=== PATIENT | male | born 1935 | race Caucasian/White ===

== ENCOUNTER 2017-07-24 18:27 | Observation (INO) ==
[2017-07-24] MEDS ORDERED: *HR* FentaNYL (PF) 100 MCG/2 ML VIAL IVP ONE (18:46)
[2017-07-24] MEDS ORDERED: 0.9 % Sodium Chloride 1,000 ML IVC ONE (18:46)
--- NOTE | 2017-07-24 18:50 | Emergency Department Note ---
Disposition Clinical Impression: Fracture of superior pubic ramus Qualifiers: Encounter type: initial encounter Fracture type: closed Laterality: left Qualified Code(s): S32.512A - Fracture of superior rim of left pubis, initial encounter for closed fracture Fracture of left inferior pubic ramus Qualifiers: Encounter type: initial encounter Fracture type: closed Qualified Code(s): S32.592A - Other specified fracture of left pubis, initial encounter for closed fracture Contusion, hip Qualifiers: Encounter type: initial encounter Laterality: right Qualified Code(s): S70.01XA - Contusion of right hip, initial encounter UTI (urinary tract infection) Qualifiers: Urinary tract infection type: site unspecified Hematuria presence: without hematuria Qualified Code(s): N39.0 - Urinary tract infection, site not specified Disposition: Admitted As Inpatient Condition: Fair Forms: ED Satisfaction Letter Time of Disposition: 20:51 Fall HPI - General Chief Complaint: ED Fall Stated Complaint: fall Time Seen by Provider: 07/24/17 18:28 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 Patient states his foot slipped from underneath him and he landed on his back and hips. Patient complaining of bilateral hip pain, occiput pain and cervical pain. Patient is on Coumadin. Onset (ago): hour(s) (1) Fall From: standing Fall Witnessed: no Place Fall Occurred: detention/SNF Loss of Consciousness: none Prolonged Down Time?: unclear Symptoms Prior to Fall: none Context: tripped/slipped Location of injury: head, neck, hip, pelvis - Related Data Home Medications Medication Instructions Recorded Confirmed Acetaminophen [Tylenol Arthritis] 650 mg PO TID 04/08/16 04/08/16 Alendronate Sodium [Fosamax] 70 mg PO QWEEK 04/08/16 04/08/16 Atorvastatin [Lipitor] 40 mg PO HS 04/08/16 04/08/16 Cholecalciferol (D-3) [Vitamin D] 2,000 unit PO DAILY 04/08/16 04/08/16 Clotrimazole 1% CRM [Lotrimin 1%] 1 appl TP BID 04/08/16 04/08/16 Digoxin [Lanoxin] 0.125 mg PO DAILY 04/08/16 04/08/16 Docusate [Colace] 200 mg PO DAILY 04/08/16 04/08/16 Furosemide [Lasix] 40 mg PO QPM 04/08/16 04/08/16 Furosemide [Lasix] 60 mg PO QAM 04/08/16 04/08/16 Insulin NPH, HUMAN [HumuLIN N] 35 unit SQ QPM 04/08/16 04/08/16 Insulin NPH, HUMAN [HumuLIN N] 55 unit SQ QAM 04/08/16 04/08/16 Levothyroxine Sodium [Levoxyl] 175 mcg PO DAILY 04/08/16 04/08/16 Losartan Potassium [Cozaar] 50 mg PO BID 04/08/16 04/08/16 NIFEdipine [Adalat cc] 60 mg PO DAILY 04/08/16 04/08/16 Omeprazole [PriLOSEC] 20 mg PO DAILY 04/08/16 04/08/16 Tamsulosin HCl [Flomax] 0.4 mg PO DAILY 04/08/16 04/08/16 Warfarin [Coumadin] 2.5 mg PO AD 04/08/16 04/08/16 Warfarin [Coumadin] 5 mg PO AD 04/08/16 04/08/16 Previous Rx's Medication Instructions Recorded HYDROcodone/Acet 5/325 mg [[place] 1 tab PO Q6H PRN #20 tablet 04/09/16 5-325 mg] Lidocaine Patch [Lidoderm 5% patch] 1 each TP DAILY #7 adh..patch 04/09/16 Allergies Allergy/AdvReac Type Severity Reaction Status Date / Time acetaminophen [From Percocet] Allergy See Verified 03/25/16 18:38 Comments baclofen Allergy See Verified 03/25/16 18:38 Comments cheese Allergy See Verified 03/25/16 18:38 Comments gabapentin Allergy See Verified 03/25/16 18:38 Comments Hydralazine Allergy See Verified 03/25/16 18:38 Comments milk Allergy See Verified 03/25/16 18:38 Comments Oxycodone [From Percocet] Allergy See Verified 03/25/16 18:38 Comments Salsalate Allergy See Verified 03/25/16 18:38 Comments Terazosin Allergy See Verified 03/25/16 18:38 Comments tramadol Allergy See Verified 03/25/16 18:38 Comments butter Allergy See Uncoded 03/25/16 18:38 Comments All systems ED: reviewed and negative except as stated. Review of Systems: As Per HPI Constitutional: Denies: fever, weakness Respiratory: Denies: cough Gastrointestinal: Denies: abdominal pain, nausea, vomiting, diarrhea Fall PMH - Past Medical History Medical history: Reports: atrial fibrillation, CHF, diabetes, osteoporosis, thyroid disease Psychiatric history: Reports: no psych history - Social History Smoking Status: Never smoker Alcohol use: Reports: none Drug use: Reports: none Physical Exam Vital Signs Temperature 97.8 F 07/24/17 18:27 Pulse Rate 76 07/24/17 18:27 Respiratory Rate 18 07/24/17 18:27 Blood Pressure 161/83 07/24/17 18:27 O2 Sat by Pulse Oximetry 98 07/24/17 18:27 Temperature 97.8 F 07/24/17 18:27 Pulse Rate 76 07/24/17 18:27 Respiratory Rate 18 07/24/17 18:27 Blood Pressure 161/83 07/24/17 18:27 O2 Sat by Pulse Oximetry 98 07/24/17 18:27 Oxygen Delivery Oxygen Delivery Room Air 82-year-old male who was is alert and oriented to himself but has fluidity of speech. Patient can tell you that the president is Jignesh is the president. Patient has no recollection of time or day. CONSTITUTIONAL: Alert and oriented X1 for himself, well-nourished, well appearing, in no apparent distress as long as he does not try to move. HEAD: Normocephalic; atraumatic. EYES: PERRL, no scleral icterus. NOSE: The nose is normal in appearance without rhinorrhea RESP: Normal chest excursion with respiration; breath sounds clear and equal bilaterally; no wheezes, rhonchi, or rales CARD: Regular rhythm, without murmurs, rub or gallop ABD: Non-distended; non-tender, soft,without rigidity, rebound or guarding Back: No step-offs no deviation upon palpation T and L-spine. Patient is too distracted by hip pain to localized pain in this fine when I palpate. SKIN: Normal for age and race; warm and dry; no apparent lesions Extremities: Tenderness to palpation right left hip, Pulses are 2 plus and equal times 4 extremities, no peripheral edema or calf muscle pain. NEUROLOGICAL: Cranial nerves III-XII are intact. Sensory and motor functions are intact. Strength is 5/5 for flexion and extension in upper extremities. Patient can wiggle his toes and he has equal sensation in both lower extremities but cannot move his lower extremities secondary to restriction from pain. Finger to nose testing is equal and normal bilaterally. - General Limitations: no limitations General appearance: alert, in no apparent distress Course Vital Signs Temperature 97.8 F 07/24/17 18:27 Pulse Rate 76 07/24/17 18:27 Respiratory Rate 18 07/24/17 18:27 Blood Pressure 161/83 07/24/17 18:27 O2 Sat by Pulse Oximetry 98 07/24/17 18:27 Temperature 97.8 F 07/24/17 18:27 Pulse Rate 76 07/24/17 18:27 Respiratory Rate 18 07/24/17 18:27 Blood Pressure 161/83 07/24/17 18:27 O2 Sat by Pulse Oximetry 98 07/24/17 18:27 Oxygen Delivery Oxygen Delivery Room Air Fall - [facility] Narrative Medical decision making narrative: Ground-level mechanical fall without loss of consciousness concerning for possible intracranial hemorrhage secondary to patient being on Coumadin along with cervical fracture with tenderness to midline C-spine as well as possible hip fracture with tenderness to palpation of bilateral hips. Fall was unwitness[facility] as [facility]. Patient is alert and oriented to himself. Straight catheter was ordered to obtain patient's urine because patient unable to produce urine on his own because of restriction of motion secondary to pain. Imaging shows no cranial fracture or intracranial hemorrhage or hematoma. CT of C-spine shows no fracture. CT pelvis shows left inferior and superior pubic rami fractures with small amount of blood surrounding the fracture site. Patient is on Coumadin. INR is in therapeutic range at 2.0. Patient's pain is being controlled with fentanyl. Urinalysis shows UTI and patient has been started on IV antibiotics ceftriaxone. Patient has WBC of 16.5 2/2 a combination of patient's distress to acute intense pain from fall, and UTI. Dr. Omer of orthopedic surgery has been consulted Patient has been accepted for admission by Dr. Ray - Lab Data Lab results reviewed: Yes I reviewed the patient's lab results. Lab results narrative: Short CBC 07/24/17 Range/Units 19:00 WBC 16.5 H (4.3-11.1) K/mcL Hgb 15.8 (12.9-16.9) g/dL Hct 47.8 (37.5-50.1) % Plt Count 128 L (140-400) K/mcL Neutrophils # 13.0 H (1.6-8.9) K/mcL BMP 07/24/17 Range/Units 20:01 Sodium 137 (136-145) mEq/L Potassium 4.1 (3.5-5.1) mEq/L Chloride 105 (98-107) mEq/L Carbon Dioxide 26 (23-29) mEq/L BUN 26 H (8-23) mg/dL Creatinine 0.90 (0.70-1.30) mg/dL Glucose 136 H (70-105) mg/dL Calcium 9.7 (8.6-10.3) mg/dL Cardiac Enzymes 07/24/17 Range/Units 19:00 Troponin I 0.03 (< 0.04) ng/mL Urine 07/24/17 Range/Units 20:29 Urine Color Yellow (Yellow) Urine Clarity Cloudy A (Clear) Urine pH 6.0 (5.0-8.0) pH Units Ur Specific [place] 1.016 (1.010-1.025) Urine Protein Negative (Neg-Trace) mg/dL Urine Glucose (UA) Normal (Normal) mg/dL Result diagrams: 07/24/17 19:00 07/24/17 20:01 Lab Results 07/24/17 07/24/17 07/24/17 Range/Units 19:00 19:00 19:00 WBC 16.5 H (4.3-11.1) K/mcL RBC 5.01 (4.19-5.50) M/mcL Hgb 15.8 (12.9-16.9) g/dL Hct 47.8 (37.5-50.1) % MCV 95.4 (83.0-100.0) fL MCH 31.5 (28.0-33.3) pg MCHC 33.1 (31.6-35.5) g/dL RDW 12.3 (11.5-14.5) % Plt Count 128 L (140-400) K/mcL MPV 10.2 (9.4-12.4) fL Immature Gran % 1.1 (0-4) % Seg Neutrophils % 78.8 % Lymphocytes % 11.7 % Monocytes % 6.9 % Eosinophils % 1.1 % Basophils % 0.4 % Neutrophils # 13.0 H (1.6-8.9) K/mcL Lymphocytes # 1.9 (0.6-4.6) K/mcL Monocytes # 1.1 (0.0-1.3) K/mcL Eosinophils # 0.2 (0.0-0.6) K/mcL Basophils # 0.1 (0.0-0.2) K/mcL PT 21.8 H (9.4-12.1) Seconds INR 2.0 Sodium (136-145) mEq/L Potassium (3.5-5.1) mEq/L Chloride (98-107) mEq/L Carbon Dioxide (23-29) mEq/L BUN (8-23) mg/dL Creatinine (0.70-1.30) mg/dL Est GFR ( Amer) (> 60) Est GFR (Non-Af Amer) (> 60) BUN/Creatinine Ratio (6-26) Glucose (70-105) mg/dL Calculated Osmolality (280-300) Calcium (8.6-10.3) mg/dL Creatine Kinase (30-223) Units/L Troponin I 0.03 (< 0.04) ng/mL Specimen Rejected 07/24/17 07/24/17 Range/Units 19:00 20:01 WBC (4.3-11.1) K/mcL RBC (4.19-5.50) M/mcL Hgb (12.9-16.9) g/dL Hct (37.5-50.1) % MCV (83.0-100.0) fL MCH (28.0-33.3) pg MCHC (31.6-35.5) g/dL RDW (11.5-14.5) % Plt Count (140-400) K/mcL MPV (9.4-12.4) fL Immature Gran % (0-4) % Seg Neutrophils % % Lymphocytes % % Monocytes % % Eosinophils % % Basophils % % Neutrophils # (1.6-8.9) K/mcL Lymphocytes # (0.6-4.6) K/mcL Monocytes # (0.0-1.3) K/mcL Eosinophils # (0.0-0.6) K/mcL Basophils # (0.0-0.2) K/mcL PT (9.4-12.1) Seconds INR Sodium 137 (136-145) mEq/L Potassium 4.1 (3.5-5.1) mEq/L Chloride 105 (98-107) mEq/L Carbon Dioxide 26 (23-29) mEq/L BUN 26 H (8-23) mg/dL Creatinine 0.90 (0.70-1.30) mg/dL Est GFR ( Amer) > 60 (> 60) Est GFR (Non-Af Amer) > 60 (> 60) BUN/Creatinine Ratio 29 H (6-26) Glucose 136 H (70-105) mg/dL Calculated Osmolality 291 (280-300) Calcium 9.7 (8.6-10.3) mg/dL Creatine Kinase 25 L (30-223) Units/L Troponin I (< 0.04) ng/mL Specimen Rejected Hemolyzed - Radiology Data Radiology results reviewed: Yes I reviewed the patient's radiology results. Cervical Spine CT 07/24/17 18:37 IMPRESSION: 1. Advanced degenerative change of the cervical spine without CT evidence of acute trauma. 2. Severe atherosclerosis. 3. Bronchiolitis. D/ / Donovan Suggs / Donovan Suggs Interpreting Provider: Donovan Suggs Head CT 07/24/17 18:37 IMPRESSION: No acute intracranial abnormality. No change from prior study. D/ / 07/24/2017 20:23:48 Srinivasa Sprague MD / gabrielle Interpreting Provider: Srinivasa Sprague MD Pelvis CT 07/24/17 18:37 IMPRESSION: 1. Acute mildly comminuted fractures of the left superior and inferior pubic rami with adjacent stranding compatible with blood products. 2. Osteopenia. 3. Mild bilateral hip osteoarthritis. 4. Atherosclerotic disease. D/ / Ryan Gallagher MD / Ryan Gallagher MD Interpreting Provider: Ryan Gallagher MD Chest X-Ray 07/24/17 18:39 IMPRESSION: 1. Chronic appearing coarse interstitial densities predominate parahilar regions and lung bases, typical of sequela from smoking or other previous infectious/inflammatory process. Superimposed pneumonitis cannot be excluded. 2. Borderline to mild cardiomegaly. 3. Calcific atherosclerotic disease aorta. D/ / Mark Marinelli / Mark Marinelli Interpreting Provider: Mark Marinelli - EKG Data EKG attestation: Yes I reviewed and interpreted this EKG. EKG results narrative: EKG taken to July 2017 at 1826 shows A. fib at a rate of [address] elevations or depression any leads. QRS widening or QT prolongation previous EKG for comparison also shows A. fib but slow ventricular response at a rate of 57 bpm from an acute ST elevations or depressions. Both EKGs show the same waveform. Attestation Statement - Attestation Attestation: I examined this patient and my medical decision-making was reviewed with the Resident Physician. I agree with the documented findings, disposition and treatment plan as described except to the extent set forth below. Patient presents to the ED after a fall. Patient's foot slipped and landed on his bottom. Complaining of Pelvic pain. Denies any his head or loss of consciousness. Patient awake and alert on exam. Pain with any movement over his pelvis. Abdomen soft lungs clear. No cervical thoracic or lumbar spine tenderness. Plan. Patient with pubic rami fractures. He is on Coumadin. He has some mild bleeding around the fractures. Will admit for serial H&H.
[2017-07-24 19:17] LABS: Basophils # 0.1 K/mcL (0.0-0.2); Basophils % 0.4 %; Eosinophils # 0.2 K/mcL (0.0-0.6); Eosinophils % 1.1 %; Hematocrit 47.8 % (37.5-50.1); Hemoglobin 15.8 g/dL (12.9-16.9); Immature Granulocytes % 1.1 % (0-4); Lymphocytes # 1.9 K/mcL (0.6-4.6); Lymphocytes % 11.7 %; Mean Corpuscular HGB Conc 33.1 g/dL (31.6-35.5); Mean Corpuscular Hemoglobin 31.5 pg (28.0-33.3); Mean Corpuscular Volume 95.4 fL (83.0-100.0); Mean Platelet Volume 10.2 fL (9.4-12.4); Monocytes # 1.1 K/mcL (0.0-1.3); Monocytes % 6.9 %; Platelet Count 128 K/mcL (140-400); Red Blood Count 5.01 M/mcL (4.19-5.50); Red Cell Distribution Width 12.3 % (11.5-14.5); Segmented Neutrophils % 78.8 %
[2017-07-24 19:23] LABS: Prothrombin Time 21.8 Seconds (9.4-12.1)
[2017-07-24 20:31] LABS: BUN/Creatinine Ratio 29 (6-26); Blood Urea Nitrogen 26 mg/dL (8-23); Calcium 9.7 mg/dL (8.6-10.3); Carbon Dioxide 26 mEq/L (23-29); Chloride 105 mEq/L (98-107); Creatine Kinase 25 Units/L (30-223); Glucose 136 mg/dL (70-105); Osmolality,Calculated 291 (280-300); Potassium 4.1 mEq/L (3.5-5.1); Sodium 137 mEq/L (136-145); eGFR For African Americans > 60 (> 60); eGFR For Non-African Americans > 60 (> 60)
[2017-07-24 20:38] LABS: Bilirubin,Urine Negative (Negative); Blood,Urine Negative (Negative); Clarity,Urine Cloudy (Clear); Color,Urine Yellow (Yellow); Glucose,Urine (UA) Normal (Normal); Ketones,Urine Negative (Negative); Leukocyte Esterase,Urine Moderate (Negative); Nitrite,Urine Positive (Negative); Protein,Urine Negative (Neg-Trace); Specific Gravity,Urine 1.016 (1.010-1.025); Urobilinogen,Urine Normal (Normal)
[2017-07-24 20:40] LABS: Bacteria,Urine Many per hpf (None-Few); Hyaline Casts,Urine None Seen per lpf (None-Few); RBC,Urine 0-3 per hpf (0-3); Squamous Epithelial Cell,Urine Few per lpf (None-Few); WBC,Urine 30-50 per hpf (0-3)
[2017-07-24] MEDS ORDERED: cefTRIAXone 1,000 MG in Water for inj. (sterile) 20 ML 10 ML IVP ONE (20:42)
[2017-07-24] MEDS ORDERED: Naloxone 0.4 MG/ML INJ IVP PRN (22:49)
[2017-07-24] MEDS ORDERED: Ketorolac 15 MG/ML VIAL IVP PRN (22:54)
[2017-07-24] MEDS ORDERED: Dextrose Gel 15 GM/37.5 ML TUBE PO PRN ×2 (22:56)
[2017-07-24] MEDS ORDERED: D5% in Water 1,000 ML IVC PRN (22:56)
[2017-07-24] MEDS ORDERED: *HR* Dextrose 50 % in Water (Syg) 50 ML SYRINGE IVP PRN (22:56)
--- NOTE | 2017-07-25 00:05 | Internal Med History&Physical ---
Date of Encounter: 07/24/17 Time of Encounter: 21:00 Assessment and Plan (1) CHF (congestive heart failure) Current visit: Yes Status: Acute Appears euvolemic. Cont home med lasix. Qualifiers: Congestive heart failure type: unspecified Congestive heart failure chronicity: chronic Qualified Code(s): I50.9 - Heart failure, unspecified (2) DVT prophylaxis Current visit: Yes Status: Acute Pt is on coumadin. Coumadin is on hold because fall and fracture with suspected inner bleed. Place pt on EPCD. (3) Fracture of left inferior pubic ramus Current visit: Yes Status: Acute Cont pain management and closely monitor pt. Orthopedic consult called by ER. Less likely surgery. Diet placed. Qualifiers: Encounter type: initial encounter Fracture type: closed Qualified Code(s) : S32.592A - Other specified fracture of left pubis, initial encounter for closed fracture (4) UTI (urinary tract infection) Current visit: Yes Status: Acute Cont rocephin iv. F/U urine culture. Qualifiers: Urinary tract infection type: site unspecified Hematuria presence: without hematuria Qualified Code(s): N39.0 - Urinary tract infection, site not specified (5) Atrial fibrillation Current visit: No Status: Chronic HR is well controlled. On coumadin at [facility], will hold coumadin b/o recent fall and fracture. Place baby ASA at this point. Qualifiers: Atrial fibrillation type: chronic Qualified Code(s): I48.2 - Chronic atrial fibrillation (6) DM2 (diabetes mellitus, type 2) Current visit: No Status: Chronic Place pt in sliding scale. Qualifiers: Diabetes mellitus complication status: without complication Diabetes mellitus alf insulin use: with terminal system operator use Qualified Code(s): E11.9 - Type 2 diabetes mellitus without complications; Z79.4 - penitentiary (current) use of insulin (7) Hypertension Current visit: No Status: Chronic Cont home meds Qualifiers: Hypertension type: essential hypertension Qualified Code(s): I10 - Essential (primary) hypertension Internal Medicine - H&P: HPI Chief complaint: Fall Admitted From: Long-term Nursing Facility Plans for Post Hospital Care: [facility] History of present illness: Mr. Lopez is a 82 year old male with Hx of dementia, DM, A Fib on coumadin, CHF sent from [facility] to ER for fall. Pt has mechanical fall during try to get up from bed. Pt is demented and hx obtained from his daughter. Pt was sent to ER and had CT head, neck, and pelvis. Head and neck CT unremarkable. Pelvis CT shows Acute mildly comminuted fractures of the left superior and inferior pubic rami with adjacent stranding compatible with blood products. Orthopedics was called by ER. Pt was admitted for further management. Past Med Surg Social Fam HX - Past Medical History Medical history: atrial fibrillation, CHF, coronary artery disease, dementia, diabetes, GERD, osteoporosis, thyroid disease Psychiatric history: no psych history - Social History Smoking Status: Never smoker Alcohol use: none Drug use: none - Family History Mother History Unknown: Yes Internal Medicine - H&P: Meds Acetaminophen [Tylenol Arthritis] 650 mg PO TID 04/08/16 [History] Alendronate Sodium [Fosamax] 70 mg PO REES 04/08/16 [History] Atorvastatin [Lipitor] 40 mg PO HS 04/08/16 [History] Cholecalciferol (D-3) [Vitamin D] 2,000 unit PO DAILY 04/08/16 [History] Digoxin [Lanoxin] 0.125 mg PO DAILY 04/08/16 [History] Docusate [Colace] 200 mg PO DAILY 04/08/16 [History] Furosemide [Lasix] 40 mg PO QPM 04/08/16 [History] Furosemide [Lasix] 60 mg PO QAM 04/08/16 [History] Levothyroxine Sodium [Levoxyl] 175 mcg PO QAM 04/08/16 [History] Losartan Potassium [Cozaar] 50 mg PO BID 04/08/16 [History] NIFEdipine [Adalat cc] 60 mg PO DAILY 04/08/16 [History] Tamsulosin HCl [Flomax] 0.4 mg PO DAILY 04/08/16 [History] Ammonium Lactate [Swetha-Hydrolac] 1 appl TP BID PRN 07/24/17 [History] Calcium Carbonate/Vitamin D3 [Calcium 500-Vit D3 200 Tablet] 1 each PO TID 07/24 [History] Duloxetine HCl [Cymbalta] 60 mg PO DAILY 07/24/17 [History] Famotidine [Pepcid] 20 mg PO DAILY 07/24/17 [History] Glucagon,Human Recombinant [Glucagen] 1 mg SQ ONCE PRN 07/24/17 [History] HYDROcodone/Acet 5/325 mg [[place] 5-325 mg] 1 tab PO Q4H PRN 07/24/17 [History] Insulin DETEMIR [Levemir] 12 unit SQ QPM 07/24/17 [History] Insulin DETEMIR [Levemir] 16 unit SQ QAM 07/24/17 [History] Polyethylene Glycol 3350 [MiraLAX] 17 gm PO DAILY PRN 07/24/17 [History] Potassium Chloride [K-Tab ER] 20 meq PO BID 07/24/17 [History] Warfarin perPT [Coumadin perPT] 3.5 mg PO QPM 07/24/17 [History] Wheat Dextrin [Benefiber] 1 each PO QPM 07/24/17 [History] diazePAM [Valium] 2 mg PO BID 07/24/17 [History] 3 Allergy/AdvReac Type Severity Reaction Status Date / Time acetaminophen [From Percocet] Allergy See Verified 03/25/16 18:38 Comments baclofen Allergy See Verified 03/25/16 18:38 Comments cheese Allergy See Verified 03/25/16 18:38 Comments gabapentin Allergy See Verified 03/25/16 18:38 Comments Hydralazine Allergy See Verified 03/25/16 18:38 Comments milk Allergy See Verified 03/25/16 18:38 Comments Oxycodone [From Percocet] Allergy See Verified 03/25/16 18:38 Comments Salsalate Allergy See Verified 03/25/16 18:38 Comments Terazosin Allergy See Verified 03/25/16 18:38 Comments tramadol Allergy See Verified 03/25/16 18:38 Comments butter Allergy See Uncoded 03/25/16 18:38 Comments All Systems PM: A 10-system review of systems was performed and is negative for pertinent findings except as documented above in the HPI. - Constitutional Vitals: Temp Pulse Resp BP Pulse Ox 97.4 F L 84 17 142/83 94 07/24/17 23:54 07/24/17 23:54 07/24/17 23:54 07/24/17 23:54 07/24/17 23:54 General appearance: Present: A&O X 1, no acute distress, answers questions appropriately - Head Head exam: Present: atraumatic, normocephalic - Eye Eye exam: Present: PERRL, conjuntiva pink, sclera anicteric Pupils: Present: PERRL - Neck Neck exam general surgery: Present: supple, trachea midline. Absent: lymphadenopathy - Respiratory Respiratory exam: Present: CTAB. Absent: accessory muscle use, rales, rhonchi, wheezes - Cardiovascular Cardiovascular exam: Present: RRR, +S1, +S2. Absent: diastolic murmur, gallop, rubs, systolic murmur - GI/Abdominal GI/Abdominal exam: Present: normal bowel sounds, soft, no peritoneal signs. Absent: distended, tenderness - Extremities Exam Extremities exam: Present: tenderness (Mild tenderness on pubic area, no skin bruise), warm, radial pulses palpable and symmetrical. Absent: calf tenderness , cyanotic, pedal edema - Neurological Exam Neurological exam: Present: CN II-XII intact, no focal deficits. Absent: pronater drift, facial droop, speech deficit - Skin Skin exam: Present: dry, intact Internal Med - H&P Results - Labs CBC & Chem 7: 07/24/17 19:00 07/24/17 20:01
[2017-07-25] MEDS: 0.9 % Sodium Chloride 1,000 ML IVC SCH ×2 (01:45→21:55)
[2017-07-25] MEDS: *HR* HYDROcodone/Acet 5/325 mg TABLET PO PRN ×2 (01:46→17:12)
[2017-07-25 06:36] LABS: Basophils % 0.4 %; Eosinophils # 0.2 K/mcL (0.0-0.6); Eosinophils % 1.5 %; Hematocrit 42.5 % (37.5-50.1); Immature Granulocytes % 0.6 % (0-4); Lymphocytes # 2.2 K/mcL (0.6-4.6); Mean Corpuscular HGB Conc 33.2 g/dL (31.6-35.5); Mean Corpuscular Hemoglobin 31.8 pg (28.0-33.3); Mean Corpuscular Volume 95.7 fL (83.0-100.0); Monocytes # 1.1 K/mcL (0.0-1.3); Monocytes % 10.5 %; Neutrophils # 6.5 K/mcL (1.6-8.9); Platelet Count 116 K/mcL (140-400); Red Blood Count 4.44 M/mcL (4.19-5.50); Red Cell Distribution Width 12.3 % (11.5-14.5)
[2017-07-25 06:40] LABS: Hemoglobin 14.1 g/dL (12.9-16.9)
[2017-07-25 06:41] LABS: Prothrombin Time 22.3 Seconds (9.4-12.1)
[2017-07-25 06:52] LABS: BUN/Creatinine Ratio 29 (6-26); Blood Urea Nitrogen 24 mg/dL (8-23); Calcium 9.3 mg/dL (8.6-10.3); Carbon Dioxide 26 mEq/L (23-29); Chloride 105 mEq/L (98-107); Glucose 137 mg/dL (70-105); Magnesium 1.8 mg/dL (1.6-2.6); Osmolality,Calculated 288 (280-300); Potassium 4.2 mEq/L (3.5-5.1); Sodium 136 mEq/L (136-145); eGFR For African Americans > 60 (> 60); eGFR For Non-African Americans > 60 (> 60)
[2017-07-25] MEDS: cefTRIAXone 1,000 MG in Water for inj. (sterile) 10 ML IVPB SCH (08:23)
[2017-07-25] MEDS: *HR* Digoxin 0.125 MG TABLET PO SCH (08:29)
[2017-07-25] MEDS: Cholecalciferol (D-3) 1,000 UNIT TABLET PO SCH (08:29)
[2017-07-25] MEDS: diazePAM 2 MG TABLET PO SCH ×2 (08:29→21:58)
[2017-07-25] MEDS: Famotidine 20 MG TABLET PO SCH (08:29)
[2017-07-25] MEDS: Aspirin Enteric Coated 81 MG Tablet PO SCH (08:29)
[2017-07-25] MEDS: Acetaminophen 325 MG TABLET PO SCH ×3 (08:29→21:58)
[2017-07-25] MEDS: Furosemide 40 MG TABLET PO SCH (08:30)
[2017-07-25] MEDS: Insulin LISPRO 300 UNITS/3 ML VIAL SQ SCH ×3 (08:43→17:03)
--- NOTE | 2017-07-25 10:52 | Orthopedic Consult Note ---
Date of Encounter: 07/25/17 Time of Encounter: 09:45 Assessment and Plan (1) Fracture of superior pubic ramus Current Visit: Yes Status: Acute Stable fracture pattern. Weightbearing as tolerated Follow-up in the office upon discharge in 2 weeks Qualifiers: Encounter type: initial encounter Fracture type: closed Laterality: left Qualified Code(s): S32.512A - Fracture of superior rim of left pubis, initial encounter for closed fracture (2) Fracture of left inferior pubic ramus Current Visit: Yes Status: Acute As above Qualifiers: Encounter type: initial encounter Fracture type: closed Qualified Code(s) : S32.592A - Other specified fracture of left pubis, initial encounter for closed fracture History of Present Illness Chief complaint: History of fall HPI: Mr. Lopez is a 82 year old male with a history of dementia status post fall yesterday. Patient brought to the emergency room, pelvic CT showing left-sided rami fractures. Patient is unable to give any information. Past Med Surg Social Fam HX - Past Medical History Medical history: atrial fibrillation, CHF, coronary artery disease, dementia, diabetes, GERD, osteoporosis, thyroid disease Psychiatric history: no psych history - Social History Smoking Status: Never smoker Alcohol use: none Drug use: none - Family History Mother History Unknown: Yes Medications and Allergies Acetaminophen [Tylenol Arthritis] 650 mg PO TID 04/08/16 [History] Alendronate Sodium [Fosamax] 70 mg PO REES 04/08/16 [History] Atorvastatin [Lipitor] 40 mg PO HS 04/08/16 [History] Cholecalciferol (D-3) [Vitamin D] 2,000 unit PO DAILY 04/08/16 [History] Digoxin [Lanoxin] 0.125 mg PO DAILY 04/08/16 [History] Docusate [Colace] 200 mg PO DAILY 04/08/16 [History] Furosemide [Lasix] 40 mg PO QPM 04/08/16 [History] Furosemide [Lasix] 60 mg PO QAM 04/08/16 [History] Levothyroxine Sodium [Levoxyl] 175 mcg PO QAM 04/08/16 [History] Losartan Potassium [Cozaar] 50 mg PO BID 04/08/16 [History] NIFEdipine [Adalat cc] 60 mg PO DAILY 04/08/16 [History] Tamsulosin HCl [Flomax] 0.4 mg PO DAILY 04/08/16 [History] Ammonium Lactate [Swetha-Hydrolac] 1 appl TP BID PRN 07/24/17 [History] Calcium Carbonate/Vitamin D3 [Calcium 500-Vit D3 200 Tablet] 1 each PO TID 07/24 [History] Duloxetine HCl [Cymbalta] 60 mg PO DAILY 07/24/17 [History] Famotidine [Pepcid] 20 mg PO DAILY 07/24/17 [History] Glucagon,Human Recombinant [Glucagen] 1 mg SQ ONCE PRN 07/24/17 [History] HYDROcodone/Acet 5/325 mg [[place] 5-325 mg] 1 tab PO Q4H PRN 07/24/17 [History] Insulin DETEMIR [Levemir] 12 unit SQ QPM 07/24/17 [History] Insulin DETEMIR [Levemir] 16 unit SQ QAM 07/24/17 [History] Polyethylene Glycol 3350 [MiraLAX] 17 gm PO DAILY PRN 07/24/17 [History] Potassium Chloride [K-Tab ER] 20 meq PO BID 07/24/17 [History] Warfarin perPT [Coumadin perPT] 3.5 mg PO QPM 07/24/17 [History] Wheat Dextrin [Benefiber] 1 each PO QPM 07/24/17 [History] diazePAM [Valium] 2 mg PO BID 07/24/17 [History] 3 Allergy/AdvReac Type Severity Reaction Status Date / Time acetaminophen [From Percocet] Allergy See Verified 03/25/16 18:38 Comments baclofen Allergy See Verified 03/25/16 18:38 Comments cheese Allergy See Verified 03/25/16 18:38 Comments gabapentin Allergy See Verified 03/25/16 18:38 Comments Hydralazine Allergy See Verified 03/25/16 18:38 Comments milk Allergy See Verified 03/25/16 18:38 Comments Oxycodone [From Percocet] Allergy See Verified 03/25/16 18:38 Comments Salsalate Allergy See Verified 03/25/16 18:38 Comments Terazosin Allergy See Verified 03/25/16 18:38 Comments tramadol Allergy See Verified 03/25/16 18:38 Comments butter Allergy See Uncoded 03/25/16 18:38 Comments All Systems Reviewed: A 10-system review of systems was performed and is negative for pertinent findings except as documented above in the HPI. Physical Exam - Constitutional Vitals: Temp Pulse Resp BP Pulse Ox 97.5 F L 74 14 155/82 97 07/25/17 07:31 07/25/17 07:31 07/25/17 07:31 07/25/17 07:31 07/25/17 07:31 General appearance IM: A&O X 0, no acute distress Exam: Head normocephalic, atraumatic. Positive tenderness and left-sided hip groin to midline region, patient responds to pain. No response to hip range of motion bilaterally. Bilateral calves soft and nontender. Results - Labs Result Diagrams: 07/25/17 06:25 07/25/17 06:25 Labs: Abnormal lab results Plt Count 116 K/mcL (140-400) L 07/25/17 06:25 PT 22.3 Seconds (9.4-12.1) H 07/25/17 06:25 BUN 24 mg/dL (8-23) H 07/25/17 06:25 BUN/Creatinine Ratio 29 (6-26) H 07/25/17 06:25 Glucose 137 mg/dL (70-105) H 07/25/17 06:25 POC Glucose 132 (58-89) H 07/24/17 22:43 Creatine Kinase 25 Units/L (30-223) L 07/24/17 20:01 Urine Clarity Cloudy (Clear) A 07/24/17 20:29 Urine Nitrite Positive (Negative) A 07/24/17 20:29 Ur Leukocyte Esterase Moderate (Negative) H 07/24/17 20:29 Urine Microscopic WBC 30-50 per hpf (0-3) H 07/24/17 20:29 Urine Bacteria Many per hpf (None-Few) H 07/24/17 20:29 H & H 07/25/17 Range/Units 06:25 Hgb 14.1 D (12.9-16.9) g/dL Hct 42.5 (37.5-50.1) % All other labs normal. - Diagnostic results Hip CT: image reviewed (Left-sided nondisplaced pubic rami fractures) Consult Discharge Plan - Plan Referrals: NONE,PCP [Primary Care Provider] -
[2017-07-25] MEDS: NIFEdipine XL (24 HR) 60 MG TAB.ER.24 PO SCH (13:11)
[2017-07-25] MEDS ORDERED: Furosemide 40 MG TABLET PO SCH (18:00)
--- NOTE | 2017-07-25 18:47 | Event Note ---
Date of Encounter: 07/25/17 Time of Encounter: 16:40 Patient is here for fall with fracture of left inferior and superior pubic ramus. There are no acute events during monitoring throughout the day. VS Reviewed: stable. Labs; on admission wbc 16k and now within normal limits. platelets 116-128, near baseline. Otherwise CBC and BMP unremarkable. Physical exam: - Head Head exam: Present: atraumatic, normocephalic - Eye Eye exam: Present: PERRL, conjuntiva pink, sclera anicteric Pupils: Present: PERRL - Neck Neck exam general surgery: Present: supple, trachea midline. Absent: lymphadenopathy - Respiratory Respiratory exam: Present: CTAB. Absent: accessory muscle use, rales, rhonchi, wheezes - Cardiovascular Cardiovascular exam: Present: RRR, +S1, +S2. Absent: diastolic murmur, gallop, rubs, systolic murmur - GI/Abdominal GI/Abdominal exam: Present: normal bowel sounds, soft, no peritoneal signs. Absent: distended, tenderness - Extremities Exam Extremities exam: Present: tenderness (Mild tenderness on pubic area, no skin bruise), warm, radial pulses palpable and symmetrical. Absent: calf tenderness , cyanotic, pedal edema - Neurological Exam Neurological exam: Present: CN II-XII intact, no focal deficits. Absent: pronater drift, facial droop, speech deficit - Skin Skin exam: Present: dry, intact A/P: 1. Fracture of inferior and superior left pubic ramus. - evaluated by Ortho, not surgical candidate. Has scheduled follow-up 2. CHF: stable 3. UTI: Rocephin 4. Atrial fibrillation 5. DM type 2 6. Hypertension - Patient can be discharged in AM if no acute issues. - Will need rx for antibiotics on discharge - Will need to visit if patient is still good candidate for anticoagulation therapy as he is a fall risk. - He is orginally on coumadin but we are holding.
[2017-07-25] MEDS ORDERED: Insulin LISPRO 300 UNITS/3 ML VIAL SQ SCH (21:00)
[2017-07-26 07:14] VITALS: BP 106/70
[2017-07-26] MEDS: cefTRIAXone 1,000 MG in Water for inj. (sterile) 10 ML IVPB SCH (07:34)
[2017-07-26] MEDS: NIFEdipine XL (24 HR) 60 MG TAB.ER.24 PO SCH (07:39)
[2017-07-26] MEDS: diazePAM 2 MG TABLET PO SCH (07:39)
[2017-07-26] MEDS: Famotidine 20 MG TABLET PO SCH (07:39)
[2017-07-26] MEDS: Furosemide 40 MG TABLET PO SCH (07:39)
[2017-07-26] MEDS: Aspirin Enteric Coated 81 MG Tablet PO SCH (07:39)
[2017-07-26] MEDS: Acetaminophen 325 MG TABLET PO SCH (07:40)
[2017-07-26] MEDS: Cholecalciferol (D-3) 1,000 UNIT TABLET PO SCH (07:41)
[2017-07-26] MEDS: *HR* Digoxin 0.125 MG TABLET PO SCH (07:41)
--- NOTE | 2017-07-26 07:47 | Discharge Summary ---
Date of Encounter: 07/26/17 Time of Encounter: 07:44 - Discharge Diagnosis (1) Fracture of left inferior pubic ramus Priority: Primary Status: Acute Qualifiers: Encounter type: initial encounter Fracture type: closed Qualified Code(s) : S32.592A - Other specified fracture of left pubis, initial encounter for closed fracture (2) Fracture of superior pubic ramus Priority: Secondary Status: Acute Qualifiers: Encounter type: initial encounter Fracture type: closed Laterality: left Qualified Code(s): S32.512A - Fracture of superior rim of left pubis, initial encounter for closed fracture (3) UTI (urinary tract infection) Priority: Secondary Status: Acute Qualifiers: Urinary tract infection type: site unspecified Hematuria presence: without hematuria Qualified Code(s): N39.0 - Urinary tract infection, site not specified (4) Hyperlipidemia Priority: Secondary Status: Acute Qualifiers: Hyperlipidemia type: unspecified Qualified Code(s): E78.5 - Hyperlipidemia , unspecified (5) DM2 (diabetes mellitus, type 2) Priority: Secondary Status: Chronic Qualifiers: Diabetes mellitus complication status: without complication Diabetes mellitus residential insulin use: with 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 use Qualified Code(s): E11.9 - Type 2 diabetes mellitus without complications; Z79.4 - ocean transportation intermediary (current) use of insulin (6) Hypertension Priority: Secondary Status: Chronic Qualifiers: Hypertension type: essential hypertension Qualified Code(s): I10 - Essential (primary) hypertension - Discharge Medications Prescriptions: diazePAM [Valium] 2 mg PO BID 3 Days #6 tablet HYDROcodone/Acet 5/325 mg [[place] 5-325 mg] 1 tab PO Q4H PRN 3 Days #15 tablet PRN Reason: Pain Home Medications: Acetaminophen [Tylenol Arthritis] 650 mg PO TID 04/08/16 [History] Alendronate Sodium [Fosamax] 70 mg PO REES 04/08/16 [History] Atorvastatin [Lipitor] 40 mg PO HS 04/08/16 [History] Cholecalciferol (D-3) [Vitamin D] 2,000 unit PO DAILY 04/08/16 [History] Digoxin [Lanoxin] 0.125 mg PO DAILY 04/08/16 [History] Docusate [Colace] 200 mg PO DAILY 04/08/16 [History] Furosemide [Lasix] 40 mg PO QPM 04/08/16 [History] Furosemide [Lasix] 60 mg PO QAM 04/08/16 [History] Levothyroxine Sodium [Levoxyl] 175 mcg PO QAM 04/08/16 [History] Losartan Potassium [Cozaar] 50 mg PO BID 04/08/16 [History] NIFEdipine [Adalat cc] 60 mg PO DAILY 04/08/16 [History] Tamsulosin HCl [Flomax] 0.4 mg PO DAILY 04/08/16 [History] Ammonium Lactate [Swetha-Hydrolac] 1 appl TP BID PRN 07/24/17 [History] Calcium Carbonate/Vitamin D3 [Calcium 500-Vit D3 200 Tablet] 1 each PO TID 07/24 [History] Duloxetine HCl [Cymbalta] 60 mg PO DAILY 07/24/17 [History] Famotidine [Pepcid] 20 mg PO DAILY 07/24/17 [History] Glucagon,Human Recombinant [Glucagen] 1 mg SQ ONCE PRN 07/24/17 [History] Insulin DETEMIR [Levemir] 12 unit SQ QPM 07/24/17 [History] Insulin DETEMIR [Levemir] 16 unit SQ QAM 07/24/17 [History] Polyethylene Glycol 3350 [MiraLAX] 17 gm PO DAILY PRN 07/24/17 [History] Potassium Chloride [K-Tab ER] 20 meq PO BID 07/24/17 [History] Warfarin perPT [Coumadin perPT] 3.5 mg PO QPM 07/24/17 [History] Wheat Dextrin [Benefiber] 1 each PO QPM 07/24/17 [History] Aspirin Enteric Coated [Aspirin EC] 81 mg PO DAILY tablet. 07/26/17 [Rx] HYDROcodone/Acet 5/325 mg [[place] 5-325 mg] 1 tab PO Q4H PRN 3 Days #15 tablet [Rx] cephALEXin [Keflex] 500 mg PO BID #24 capsule 07/26/17 [Rx] diazePAM [Valium] 2 mg PO BID 3 Days #6 tablet 07/26/17 [Rx] Allergies/Adverse Reactions: 3 Allergy/AdvReac Type Severity Reaction Status Date / Time acetaminophen [From Percocet] Allergy See Verified 03/25/16 18:38 Comments baclofen Allergy See Verified 03/25/16 18:38 Comments cheese Allergy See Verified 03/25/16 18:38 Comments gabapentin Allergy See Verified 03/25/16 18:38 Comments Hydralazine Allergy See Verified 03/25/16 18:38 Comments milk Allergy See Verified 03/25/16 18:38 Comments Oxycodone [From Percocet] Allergy See Verified 03/25/16 18:38 Comments Salsalate Allergy See Verified 03/25/16 18:38 Comments Terazosin Allergy See Verified 03/25/16 18:38 Comments tramadol Allergy See Verified 03/25/16 18:38 Comments butter Allergy See Uncoded 03/25/16 18:38 Comments Date of admission: 07/24/17 22:49 Primary care physician: PCP NONE Discharging clinician: Lisa Lowe - Patient Status Disposition: Transfer SNF Condition: Fair Functional capacity at discharge: wheelchair bound Overall status at discharge: patient is progressing back to baseline - Discharge Instructions Follow Up With: NONE,PCP [Primary Care Provider] - - Diet and Activity Activity: as per physical therapy Diet: advance to your usual diet Hospital course: Mr. Lopez is a 82 year old male with Hx of dementia, DM, A Fib on coumadin, CHF sent from [place] to ER for fall. Pt has mechanical fall during try to get up from bed. Pt is demented and hx obtained from his daughter. Pt was sent to ER and had CT head, neck, and pelvis. Head and neck CT unremarkable. Pelvis CT shows Acute mildly comminuted fractures of the left superior and inferior pubic rami with adjacent stranding compatible with blood products. Orthopedics was called by ER. Pt was admitted for further management. Orthopedic Surgery evaluated patient and fracture was stable pattern, no surgery necessary. Patient is to follow up in office in 2 weeks. He was also found to have UTI. He was treated with Rocephin and will be discharged with Keflex to complete total of 14 days therapy - Time Spent with Patient Total time spent providing and/or coordinating discharge services: - Constitutional Vitals: Temp Pulse Resp BP Pulse Ox 98.2 F 87 16 106/70 94 07/26/17 07:13 07/26/17 07:13 07/26/17 07:13 07/26/17 07:13 07/26/17 07:13 General appearance: Present: A&O X 1, no acute distress Exam: - Head Head exam: Present: atraumatic, normocephalic - Eye Eye exam: Present: PERRL, conjuntiva pink, sclera anicteric Pupils: Present: PERRL - Neck Neck exam general surgery: Present: supple, trachea midline. Absent: lymphadenopathy - Respiratory Respiratory exam: Present: CTAB. Absent: accessory muscle use, rales, rhonchi, wheezes - Cardiovascular Cardiovascular exam: Present: RRR, +S1, +S2. Absent: diastolic murmur, gallop, rubs, systolic murmur - GI/Abdominal GI/Abdominal exam: Present: normal bowel sounds, soft, no peritoneal signs. Absent: distended, tenderness - Extremities Exam Extremities exam: Present: tenderness (Mild tenderness on pubic area, no skin bruise), warm, radial pulses palpable and symmetrical. Absent: calf tenderness , cyanotic, pedal edema - Neurological Exam Neurological exam: Present: CN II-XII intact, no focal deficits. Absent: pronater drift, facial droop, speech deficit - Skin Skin exam: Present: dry, intact - VTE Documentation of Mechanical Device: Intermittent pneumatic compression device
[2017-07-26] MEDS: Insulin LISPRO 300 UNITS/3 ML VIAL SQ SCH (07:59)
--- NOTE | 2017-07-26 08:00 | Physician Discharge Referral ---
ExtendedCare Referral Info Institutional Level of Care: Skilled - Diagnosis (1) Fracture of left inferior pubic ramus Priority: Primary Status: Acute (2) Fracture of superior pubic ramus Priority: Secondary Status: Acute (3) UTI (urinary tract infection) Priority: Secondary Status: Acute (4) Hyperlipidemia Priority: Secondary Status: Acute (5) DM2 (diabetes mellitus, type 2) Priority: Secondary Status: Chronic (6) Hypertension Priority: Secondary Status: Chronic - Transfer Medications Prescriptions: cephALEXin [Keflex] 500 mg PO BID #24 capsule diazePAM [Valium] 2 mg PO BID 3 Days #6 tablet HYDROcodone/Acet 5/325 mg [[place] 5-325 mg] 1 tab PO Q4H PRN 3 Days #15 tablet PRN Reason: Pain Home Medications: Acetaminophen [Tylenol Arthritis] 650 mg PO TID 04/08/16 [History] Alendronate Sodium [Fosamax] 70 mg PO REES 04/08/16 [History] Atorvastatin [Lipitor] 40 mg PO HS 04/08/16 [History] Cholecalciferol (D-3) [Vitamin D] 2,000 unit PO DAILY 04/08/16 [History] Digoxin [Lanoxin] 0.125 mg PO DAILY 04/08/16 [History] Docusate [Colace] 200 mg PO DAILY 04/08/16 [History] Furosemide [Lasix] 40 mg PO QPM 04/08/16 [History] Furosemide [Lasix] 60 mg PO QAM 04/08/16 [History] Levothyroxine Sodium [Levoxyl] 175 mcg PO QAM 04/08/16 [History] Losartan Potassium [Cozaar] 50 mg PO BID 04/08/16 [History] NIFEdipine [Adalat cc] 60 mg PO DAILY 04/08/16 [History] Tamsulosin HCl [Flomax] 0.4 mg PO DAILY 04/08/16 [History] Ammonium Lactate [Swetha-Hydrolac] 1 appl TP BID PRN 07/24/17 [History] Calcium Carbonate/Vitamin D3 [Calcium 500-Vit D3 200 Tablet] 1 each PO TID 07/24 [History] Duloxetine HCl [Cymbalta] 60 mg PO DAILY 07/24/17 [History] Famotidine [Pepcid] 20 mg PO DAILY 07/24/17 [History] Glucagon,Human Recombinant [Glucagen] 1 mg SQ ONCE PRN 07/24/17 [History] Insulin DETEMIR [Levemir] 12 unit SQ QPM 07/24/17 [History] Insulin DETEMIR [Levemir] 16 unit SQ QAM 07/24/17 [History] Polyethylene Glycol 3350 [MiraLAX] 17 gm PO DAILY PRN 07/24/17 [History] Potassium Chloride [K-Tab ER] 20 meq PO BID 07/24/17 [History] Warfarin perPT [Coumadin perPT] 3.5 mg PO QPM 07/24/17 [History] Wheat Dextrin [Benefiber] 1 each PO QPM 07/24/17 [History] Aspirin Enteric Coated [Aspirin EC] 81 mg PO DAILY tablet. 07/26/17 [Rx] HYDROcodone/Acet 5/325 mg [[place] 5-325 mg] 1 tab PO Q4H PRN 3 Days #15 tablet [Rx] cephALEXin [Keflex] 500 mg PO BID #24 capsule 07/26/17 [Rx] diazePAM [Valium] 2 mg PO BID 3 Days #6 tablet 07/26/17 [Rx] Allergies/Adverse Reactions: 3 Allergy/AdvReac Type Severity Reaction Status Date / Time acetaminophen [From Percocet] Allergy See Verified 03/25/16 18:38 Comments baclofen Allergy See Verified 03/25/16 18:38 Comments cheese Allergy See Verified 03/25/16 18:38 Comments gabapentin Allergy See Verified 03/25/16 18:38 Comments Hydralazine Allergy See Verified 03/25/16 18:38 Comments milk Allergy See Verified 03/25/16 18:38 Comments Oxycodone [From Percocet] Allergy See Verified 03/25/16 18:38 Comments Salsalate Allergy See Verified 03/25/16 18:38 Comments Terazosin Allergy See Verified 03/25/16 18:38 Comments tramadol Allergy See Verified 03/25/16 18:38 Comments butter Allergy See Uncoded 03/25/16 18:38 Comments - Respiratory Orders Smoking Cessation: Smoking cessation has been advised. For more information, call the [place] Tobacco Quit Line at 6-174-IMXB-NOW. - Rehabiliation Orders Rehab Orders: Sternal Precautions, Evaluation for Physical Therapy, Evaluation for Occupational Therapy - Treatments Skin tear care topically daily PRN per policy, May check for fecal impaction rectally daily PRN - Diet Orders No Added Salt (PENG), No Concentrated Sweets, Cardiac CERTIFICATION: I certify that the transfer of the above named patient to an Extended Care Facility is necessary for the continuing treatment of the diagnosis listed. The above information is true and accurate reflection of patient's current condition. Confidential - Redisclosure prohibited without a patient's written consent.
--- NOTE | 2017-07-28 18:32 | Electrocardiograph Report ---
[address] [place] [address] Test Date: 2017-07-24 Pat Name: Florian Lopez Department: 104 Room: 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
== END 2017-07-26 10:10 | DRG 536 ==
LOC: 3NENU 18:27 → EMEROO 18:27 → 3NENU 21:12 → SUATTDRO 22:49
PROVIDERS: ADMIT Internal Medicine; ATTEND Internal Medicine